=== PATIENT | male | born 1970 | race Caucasian/White ===

== ENCOUNTER 2016-12-20 17:35 | Emergency (ER) | payer BC ==
[~2016-12-20] VITALS: Ht 190.5 cm; Wt 129.4 kg
[2016-12-20 17:49] VITALS: Ht 190.5 cm; Wt 129.4 kg
[2016-12-20] MEDS ORDERED: ONDANSETRON INJ 2 MG/ML 2 ML VIAL IV STA (19:19)
[2016-12-20] MEDS ORDERED: SODIUM CHLORIDE 0.9% 1000ML 1,000 ML IV STA (19:19)
--- NOTE | 2016-12-20 19:23 | EMERGENCY ROOM VISIT NOTE ---
History Report prepared by Julio Césaribe: Manasa Smith Under the Supervision of: Dennis GreeneO. First contact with patient: 19:17 Chief Complaint: ABDOMINAL PAIN Stated Complaint: STOMACH PAIN / MASS Nursing Triage Summary: Patient reports he was sent by urgent care for evaluation of left lower abd pain. Patient denies any n/v/d and states the pain started on Tuesday. History of Present Illness The patient is a 46 year old male who presents to the Emergency Room with complaints of persistent lower left sided abdominal pain that started 3 days [employer]. He rates his discomfort as an 8/10 in severity. The pain does not radiate anywhere. He went to a local urgent care clinic earlier today and states they told him he may have a hernia, and referred him to the ED for further testing. He has never undergone a colonoscopy before. He denies any back pain, chest pain , difficulty breathing, nausea, vomiting, diarrhea or urinary symptoms. The only daily medication he takes is Synthroid. He has never had surgery before. He also denies any history of diverticulitis or diverticulosis. Source of History: patient Onset: 3 days [employer] Position: abdomen (LLQ) Symptom Intensity: 8/10 Timing: other (persistent) Associated Symptoms: No chest pain, No SOB, No nausea, No vomiting, No back pain, No diarrhea, No urinary symptoms Review of Systems See HPI for pertinent positives & negatives. A total of 10 systems reviewed and were otherwise negative. Past Medical & Surgical Medical Problems: (1) Hypothyroidism Social History Smoking Status: Former Smoker Alcohol Use: none Drug Use: none Marital Status: in relationship Housing Status: lives with significant other Occupation Status: employed Current/Historical Medications Scheduled Budesonide/Formoterol Fumarate (Symbicort 80/4.5 Inhaler), 1 PUFFS INH BID Levothyroxine Sodium (Synthroid), 88 MCG PO DAILY Allergies Coded Allergies: No Known Allergies (Unverified , 12/20/16) Physical Exam Vital Signs Date Time Temp Pulse Resp B/P (MAP) Pulse Ox O2 Delivery O2 Flow Rate FiO2 12/20/16 20:24 74 12/20/16 19:48 90 20 147/103 12/20/16 17:49 36.8 89 20 144/89 96 Room Air Physical Exam GENERAL: Patient is awake, alert, very anxious and uncomfortable appearing. EYES: The conjunctivae are clear. The pupils are round and reactive. EARS, NOSE, MOUTH AND THROAT: The nose is without any evidence of any deformity. Mucous membranes are moist tongue is midline NECK: The neck is nontender and supple. RESPIRATORY: Normal respiratory effort is noted there is no evidence of wheezing rhonchi or rales CARDIOVASCULAR: Regular rate and rhythm noted there no murmurs rubs or gallops normal S1 normal S2 GASTROINTESTINAL: The abdomen is moderately distended with tenderness diffusely. LLQ guarding, no definite hernia appreciated. No mass in inguinal region. BACK: No midline tenderness or or step-off noted range of motion in flexion extension as well as rotation no signs of muscle spasm noted MUSCULOSKELETAL/EXTREMITIES: There is no evidence of gross deformity full range of motion is noted in the hips and shoulders SKIN: There is no obvious evidence of any rash. There are no petechiae, pallor or cyanosis noted. NEUROLOGIC: Patient is awake alert and oriented x3 Medical Decision & Procedures ER Provider Diagnostic Interpretation: Radiology results as stated below per my review and radiologist interpretation: CT SCAN OF THE ABDOMEN AND PELVIS WITHOUT IV CONTRAST CLINICAL HISTORY: Left lower quadrant abdominal pain. COMPARISON STUDY: No priors. TECHNIQUE: CT scan of the abdomen and pelvis is performed from the lung bases to the proximal femora. Images are reviewed in the axial, sagittal, and coronal planes. IV contrast was not administered for this examination as per the front clinician. Note that the examination was performed in suboptimal fashion without oral and IV contrast. The examination is also degraded by large body habitus, and by streak artifact from the body wall abutting the CT gantry. Automated dose control exposure was utilized. A dose lowering technique was utilized adhering to the principles of ALARA. CT DOSE: 2036.20 mGy.cm FINDINGS: Lung bases: The heart is normal in size and without pericardial effusion. The lung bases are clear noting mild bibasilar atelectasis. There is a tiny hiatal hernia. Liver: The unenhanced liver is enlarged, measuring 20.8 cm in length. The liver demonstrates diffusely diminished attenuation consistent with hepatic steatosis. Fatty sparing is seen adjacent to gallbladder fossa. There is a 2.4 cm low-attenuation lesion in the right lobe of the liver seen on axial image #179. There is no intrahepatic biliary ductal dilatation. Gallbladder: Unremarkable. Spleen: Normal in size and attenuation. Pancreas: Unremarkable. Adrenal glands: Unremarkable. Kidneys: The unenhanced kidneys are normal in size and without hydronephrosis. There are no renal calculi identified. There is no evidence of contour deforming renal mass lesion. A circumaortic left renal vein is incidentally noted. Abdominal vasculature: The abdominal aorta is normal in course and caliber. Bowel: The small bowel and colon are normal in course and caliber. There are scattered colonic diverticula without CT evidence of acute diverticulitis. The appendix is well-visualized and normal. Peritoneum: There is no intraperitoneal free air or abdominal ascites. There is a fat-containing umbilical hernia. A benign-appearing and peripherally calcified structure in the pelvis on image #464 measures 1.9 cm and likely represents a chronically torsed epiploic appendage. Lymphadenopathy: None. Pelvic viscera: The bladder, prostate, and seminal vesicles are normal as visualized. Skeletal structures: No lytic or blastic lesions are seen. IMPRESSION: 1. Suboptimal examination without oral and IV contrast. 2. There are no acute infectious or inflammatory findings in the abdomen or pelvis. 3. Hepatomegaly and severe hepatic steatosis. 4. There is an indeterminant 2.4 cm low-attenuation lesion in the right lobe of the liver. This may represent a hemangioma but cannot definitively characterized. If further characterization is desired a nonemergent MRI of the liver would be appropriate. 5. Additional findings as above. Electronically signed by: Tom Mcdaniel M.D. 12/20/2016 8:08 PM Laboratory Results 12/20/16 19:25 Red Blood Count 5.65, Mean Corpuscular Volume 86.7, Mean Corpuscular Hemoglobin 29.2, Mean Corpuscular Hemoglobin Concent 33.7, Mean Platelet Volume 8.9, Neutrophils (%) (Auto) 57.0, Lymphocytes (%) (Auto) 32.5, Monocytes (%) (Auto) 8.6, Eosinophils (%) (Auto) 1.4, Basophils (%) (Auto) 0.3, Neutrophils # (Auto) 4.99, Lymphocytes # (Auto) 2.85, Monocytes # (Auto) 0.75, Eosinophils # (Auto) 0.12, Basophils # (Auto) 0.03 12/20/16 19:25 Test 12/20/16 19:05 12/20/16 19:25 Urine Color YELLOW Urine Appearance CLEAR (CLEAR) Urine pH 5.0 (4.5-7.5) Urine Specific [place] 1.022 (1.000-1.030) Urine Protein NEG (NEG) Urine Glucose (UA) NEG (NEG) Urine Ketones TRACE (NEG) Urine Occult Blood 1+ (NEG) Urine Nitrite NEG (NEG) Urine Bilirubin NEG (NEG) Urine Urobilinogen NEG (NEG) Urine Leukocyte Esterase NEG (NEG) Urine WBC (Auto) 1-5 /hpf (0-5) Urine RBC (Auto) 0-4 /hpf (0-4) Urine Hyaline Casts (Auto) 0 /lpf (0-5) Urine Epithelial Cells (Auto) 0-5 /lpf (0-5) Urine Bacteria (Auto) NEG (NEG) White Blood Count 8.76 K/uL (4.8-10.8) Red Blood Count 5.65 M/uL (4.7-6.1) Hemoglobin 16.5 g/dL (14.0-18.0) Hematocrit 49.0 % (42-52) Mean Corpuscular Volume 86.7 fL (80-100) Mean Corpuscular Hemoglobin 29.2 pg (25-34) Mean Corpuscular Hemoglobin Concent 33.7 g/dl (32-36) Platelet Count 279 K/uL (130-400) Mean Platelet Volume 8.9 fL (7.4-10.4) Neutrophils (%) (Auto) 57.0 % Lymphocytes (%) (Auto) 32.5 % Monocytes (%) (Auto) 8.6 % Eosinophils (%) (Auto) 1.4 % Basophils (%) (Auto) 0.3 % Neutrophils # (Auto) 4.99 K/uL (1.4-6.5) Lymphocytes # (Auto) 2.85 K/uL (1.2-3.4) Monocytes # (Auto) 0.75 K/uL (0.11-0.59) Eosinophils # (Auto) 0.12 K/uL (0-0.5) Basophils # (Auto) 0.03 K/uL (0-0.2) RDW Standard Deviation 41.9 fL (36.4-46.3) RDW Coefficient of Variation 13.2 % (11.5-14.5) Immature Granulocyte % (Auto) 0.2 % Immature Granulocyte # (Auto) 0.02 K/uL (0.00-0.02) Prothrombin Time 10.3 SECONDS (9.0-12.0) Prothromb Time International Ratio 1.0 (0.9-1.1) Activated Partial Thromboplast Time 27.8 SECONDS (21.0-31.0) Partial Thromboplastin Ratio 1.1 Anion Gap 8.0 mmol/L (3-11) Est Creatinine Clear Calc Drug Dose 87.3 ml/min Estimated GFR () 62.9 Estimated GFR (Non- 54.3 BUN/Creatinine Ratio 10.2 (10-20) Calcium Level 9.2 mg/dl (8.5-10.1) Total Bilirubin 1.0 mg/dl (0.2-1) Direct Bilirubin 0.1 mg/dl (0-0.2) Aspartate Amino Transf (AST/SGOT) 20 U/L (15-37) Alanine Aminotransferase (ALT/SGPT) 42 U/L (12-78) Alkaline Phosphatase 90 U/L (45-117) Total Creatine Kinase 183 U/L (39-308) Creatine Kinase MB < 0.5 ng/ml (0.5-3.6) Creatine Kinase MB Ratio (0-3.0) Troponin I < 0.015 ng/ml (0-0.045) Total Protein 8.3 gm/dl (6.4-8.2) Albumin 4.0 gm/dl (3.4-5.0) Lipase 142 U/L (73-393) Laboratory results per my review. Medications Administered Medications (Trade) Dose Ordered Sig/Caprice Route Start Time Stop Time Status Last Admin Dose Admin Sodium Chloride 1,000 ml @ 999 mls/hr Q1H1M STAT IV 12/20/16 19:19 12/20/16 20:19 DC 12/20/16 19:37 999 MLS/HR Morphine Sulfate (MoRPHine SULFATE INJ) 4 mg Q15M PRN IV 12/20/16 19:30 01/03/17 19:29 12/20/16 19:37 4 MG Ondansetron HCl (Zofran Inj) 4 mg NOW STAT IV 12/20/16 19:19 12/20/16 19:21 DC 12/20/16 19:37 4 MG ECG Indication: abdominal pain Rate (beats per minute): 69 Rhythm: normal sinus Findings: no ectopy, other (no ST segment abnormalities) Comparison ECG Date: no prior available ED Course 1917: The patient was evaluated in room A3. A complete history and physical examination were performed. 1918: Zofran 4 mg IV, NSS 1000 ml @ 999 mls/hr IV. 1929: Morphine Sulfate 4 mg IV. 2109: I reevaluated the patient. He is feeling much better. I discussed his results and discharge instructions and he verbalized complete understanding and agreement. 2114: Zofran 4 mg 1 homepack PO, Oxycodone 5 mg 1 homepack PO. Medical Decision Prior records/ancillary studies reviewed. Triage Nursing notes reviewed. The patient's history was concerning for abdominal pain. Differential diagnosis: Etiologies such as appendicitis, diverticulitis, PUD, biliary pathology, UTI, pancreatitis, obstruction, mesenteric ischemia, aortic pathology, infections, inflammatory bowel disease, renal colic, as well as others were entertained. The patient is a 46-year-old male who presented to the emergency department for evaluation of possible hernia from an urgent care center. The patient started having lower abdominal pain over the last few days. He also says that localizes to his umbilicus. His physical exam was consistent with very significant abdominal pain but I did not have a definite palpable hernia on physical exam. The patient was treated with IV fluids IV pain medicine and IV antiemetics. On subsequent reevaluation he was feeling much better. I discussed the patient's laboratory and radiographic studies with him including the abnormality noted in his liver. He was encouraged to rest and avoid any strenuous activity. He was encouraged to call his primary care physician in the morning to schedule a follow-up appointment as well as to discuss any further testing regarding the abnormality noted on CT. He was also encouraged to return the emergency apartment immediately if symptoms change worsen or the need arises. Impression Primary Impression: LLQ abdominal pain Scribe Attestation The scribe's documentation has been prepared under my direction and personally reviewed by me in its entirety. I confirm that the note above accurately reflects all work, treatment, procedures, and medical decision making performed by me. Departure Information Dispostion Home / Self-Care Referrals No Doctor, Assigned (PCP) Patient Instructions ED Abdominal Pain Unkn Cause Male, My [facility] Additional Instructions Call your family in the morning to schedule a follow-up appointment. Rest and avoid any strenuous activity. Continue all medications as prescribed. Return to the emergency department immediately if symptoms change worsen or the need arises.
[2016-12-20] MEDS ORDERED: MoRPHine SULFATE 4 MG/ML 1 ML CARP\\VIAL IV PRN (19:30)
[2016-12-20 19:41] LABS: BASO % 0.3 %; BASO ABS # 0.03 K/uL (0-0.2); COMPLETE YES; EOS % 1.4 %; IG% 0.2 %; LYMPH % 32.5 %; LYMPH ABS # 2.85 K/uL (1.2-3.4); MEAN CELL VOLUME 86.7 fL (80-100); MEAN CORPUSCULAR HEMOGLOBIN 29.2 pg (25-34); MEAN CORPUSCULAR HGB CONC 33.7 g/dl (32-36); MEAN PLATELET VOLUME 8.9 fL (7.4-10.4); MONO % 8.6 %; PLATELET COUNT 279 K/uL (130-400); RED BLOOD COUNT 5.65 M/uL (4.7-6.1); WHITE BLOOD COUNT 8.76 K/uL (4.8-10.8)
[2016-12-20 19:47] LABS: MANUAL MICROSCOPIC REQUIRED? NO; REVIEW REQ? NO; URINE APPEARANCE CLEAR (CLEAR); URINE BILIRUBIN NEG (NEG); URINE COLOR YELLOW; URINE EPITHELIAL CELL AUTO 0-5 /lpf (0-5); URINE NITRITE NEG (NEG); URINE SPECIFIC GRAVITY 1.022 (1.000-1.030); UROBILINOGEN NEG (NEG)
[2016-12-20 19:51] LABS: PARTIAL THROMBOPLASTIN RATIO 1.1; PROTHROMBIN TIME (PATIENT) 10.3 SECONDS (9.0-12.0)
[2016-12-20 19:59] LABS: ALT/SGPT 42 U/L (12-78); BLOOD UREA NITROGEN 15 mg/dl (7-18); BUN/CREATININE RATIO 10.2 (10-20); CALCIUM 9.2 mg/dl (8.5-10.1); CARBON DIOXIDE 29 mmol/L (21-32); CHLORIDE 101 mmol/L (98-107); GLUCOSE 86 mg/dl (70-99); POTASSIUM 4.1 mmol/L (3.5-5.1); SODIUM 138 mmol/L (136-145)
[2016-12-20 20:04] LABS: ALKALINE PHOSPHATASE 90 U/L (45-117); AST/SGOT 20 U/L (15-37)
[2016-12-20] MEDS ORDERED: LEVO88TA PO (20:08)
[2016-12-20] MEDS ORDERED: SYMIN/8045 INH (20:08)
--- NOTE | 2016-12-20 20:09 | DIAGNOSTIC IMAGING REPORT ---
CT SCAN OF THE ABDOMEN AND PELVIS WITHOUT IV CONTRAST CLINICAL HISTORY: Left lower quadrant abdominal pain. COMPARISON STUDY: No priors. TECHNIQUE: CT scan of the abdomen and pelvis is performed from the lung bases to the proximal femora. Images are reviewed in the axial, sagittal, and coronal planes. IV contrast was not administered for this examination as per the front clinician. Note that the examination was performed in suboptimal fashion without oral and IV contrast. The examination is also degraded by large body habitus, and by streak artifact from the body wall abutting the CT gantry. Automated dose control exposure was utilized. A dose lowering technique was utilized adhering to the principles of ALARA. CT DOSE: 2036.20 mGy.cm FINDINGS: Lung bases: The heart is normal in size and without pericardial effusion. The lung bases are clear noting mild bibasilar atelectasis. There is a tiny hiatal hernia. Liver: The unenhanced liver is enlarged, measuring 20.8 cm in length. The liver demonstrates diffusely diminished attenuation consistent with hepatic steatosis. Fatty sparing is seen adjacent to gallbladder fossa. There is a 2.4 cm low-attenuation lesion in the right lobe of the liver seen on axial image #179. There is no intrahepatic biliary ductal dilatation. Gallbladder: Unremarkable. Spleen: Normal in size and attenuation. Pancreas: Unremarkable. Adrenal glands: Unremarkable. Kidneys: The unenhanced kidneys are normal in size and without hydronephrosis. There are no renal calculi identified. There is no evidence of contour deforming renal mass lesion. A circumaortic left renal vein is incidentally noted. Abdominal vasculature: The abdominal aorta is normal in course and caliber. Bowel: The small bowel and colon are normal in course and caliber. There are scattered colonic diverticula without CT evidence of acute diverticulitis. The appendix is well-visualized and normal. Peritoneum: There is no intraperitoneal free air or abdominal ascites. There is a fat-containing umbilical hernia. A benign-appearing and peripherally calcified structure in the pelvis on image #464 measures 1.9 cm and likely represents a chronically torsed epiploic appendage. Lymphadenopathy: None. Pelvic viscera: The bladder, prostate, and seminal vesicles are normal as visualized. Skeletal structures: No lytic or blastic lesions are seen. IMPRESSION: 1. Suboptimal examination without oral and IV contrast. 2. There are no acute infectious or inflammatory findings in the abdomen or pelvis. 3. Hepatomegaly and severe hepatic steatosis. 4. There is an indeterminant 2.4 cm low-attenuation lesion in the right lobe of the liver. This may represent a hemangioma but cannot definitively characterized. If further characterization is desired a nonemergent MRI of the liver would be appropriate. 5. Additional findings as above. Electronically signed by: Tom Mcdaniel M.D. 12/20/2016 8:08 PM Dictated Date/Time: 12/20/2016 8:01 PM
[2016-12-20] MEDS ORDERED: OXYCODONE IR HOME PACK PO ONE (21:15)
[2016-12-20] MEDS ORDERED: ONDANSETRON HOME PACK 4MG OD TAB PO ONE (21:15)
[2016-12-20 21:34] VITALS: BP 117/81; PULSE 75; TEMP 36.8; O2SAT 97
== END 2016-12-20 21:35 | disposition home or self-care (01) ==
LOC: C.EDB 17:37 → C.EDA 21:35
DX: R10.32 Left lower quadrant pain (principal); E03.9 Hypothyroidism, unspecified; Z87.891 Personal history of nicotine dependence